=== PATIENT | male | born 1960 | race African-American/Black ===

== ENCOUNTER 2017-02-14 11:06 | Inpatient (IN) ==
--- NOTE | 2017-02-14 11:35 | Emergency Department Note ---
Sebastian Casillas Brooke, am scribing for, and in the presence of, Jose Mccauley MD 11:32 . Parisa Casillas James D, MD, personally performed the services described in this documentation, ascribed by Fanta Cortes in my presence, and it is both accurate and complete 135 . Arrival - Arrival Chief Complaint: Extremity Problem Stated Complaint: legs swollen/out of BP meds ED Nursing Triage Note: Bilat leg swelling onset x 3 days - pt states that he is out of his meds x 2 months - pt does not know the name of his fluid and BP meds that he is out of Mode of Arrival: Ambulatory Limitations: No Limitations Source: Patient, RN Notes Reviewed Time Seen by Provider: 02/14/17 11:26 - History of Present Illness HPI Narrative: Patient is a 56 year old male who presents to the ED with c/o abdominal and bilateral led swelling. Patient says he ran out of his fluid pills two months ago. He says he goes to [facility] to get his medications. Patient has had the fluid drawn from his abdomen but states that it has been about four years. Patient drinks alcohol daily. He says he drinks a pint of bourbon whiskey every day. He has been drinking for years. Patient also complains of having shortness of breath. 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 Allergies/Adverse Reactions: Allergies Allergy/AdvReac Type Severity Reaction Status Date / Time No Known Allergies Allergy Unverified 02/14/17 11:13 Home Medications: Home Medications Medication Instructions Recorded Confirmed Type Propranolol Tab [Inderal Tab] 20 mg PO BID 02/14/17 02/14/17 History Spironolactone 25 mg PO BID 02/14/17 02/14/17 History Review of System - Review of System 12 point system: reviewed and no additional remarkable complaints except as stated - Review of System Constitutional: Absent: fever Respiratory: Present: other (shortness of breath). Absent: respiratory distress Gastrointestinal: Present: other (abdominal swelling) Skin: Absent: rash Neurological: Present: other (bilateral lower extremity edema) Medical,Surgical,& Family Hx - Medical History Cardio: History of: Hypertension - Social History Smoking Status: Never smoker Frequency of Alcohol Use: Frequently Type of Drug Use: None Exam Vital Signs: Vital Signs Temperature 98.5 F 02/14/17 11:50 Pulse Rate 72 02/14/17 13:00 Respiratory Rate 18 02/14/17 13:00 Blood Pressure 114/64 02/14/17 13:00 O2 Sat by Pulse Oximetry 100 02/14/17 13:00 GENERAL: This is a well-nourished well-developed black male, chronically ill- appearing, in no apparent distress. Smells of alcohol VITAL SIGNS: Reviewed HEENT: Head is atraumatic and normocephalic. Pupils are equal round react to light. Extraocular movements are intact. Oropharynx is benign with moist mucous membranes. NECK: Neck is soft and supple without tenderness. There are no masses. There is no lymphadenopathy. LUNGS: Lungs are clear to auscultation. Chest rises symmetrically. There is no chest wall tenderness. CV: Heart is regular rate and rhythm without murmurs rubs or gallops. ABDOMEN: Abdomen is soft, nontender to palpation. There are no abdominal abnormal masses palpated. There is no organomegaly. Bowel sounds are present and active. Abdomen is distended with ascites. SKIN: Skin is warm and dry. No rash. EXTREMITIES: Patient has full range of motion without tenderness. There is 3+ pitting pedal edema. NEUROLOGIC: Awake alert and oriented 4. Cranial nerves II through XII are intact. Motor is 5 over 5 in all extremities bilaterally. Course - Consultations Consultation #1: Discussed with hospitalist. Patient will be admitted to their service. Time: 13:46 Results - Labs CBC & BMP: 02/14/17 11:30 02/14/17 11:30 Lab Results: I have reviewed the patients labs Labs: Laboratory Tests 02/14/17 11:30 INR 1.4 Laboratory Tests 02/14/17 02/14/17 11:30 11:30 Albumin 2.3 L Globulin 5.9 H Serum Alcohol 311 - Diagnostic Findings Procedure: Ultrasound: report reviewed by me (Liver ultrasound: Cholelithiasis, no thickening of the gallbladder wall.) Disposition Clinical Impression: Cirrhosis of liver with ascites, Alcoholism, Anemia Case discussed with: patient Disposition: Still a Patient Condition: Stable New Prescriptions: Rx's Medication Instructions Recorded Furosemide Tab [Lasix Tab] 40 mg PO DAILY #30 tablet 02/14/17 Spironolactone [Aldactone] 25 mg PO BID #60 tablet 02/14/17 Time of Disposition: 13:44
[2017-02-14 11:47] LABS: Basophils % 0.5 % (0.0-0.8); Eosinophils # 0.1 10*3/uL (0.0-0.87); Hematocrit 24.1 VOL% (42.0-52.0); Hemoglobin 8.7 GM/DL (14.0-18.0); Immature Granulocytes % 0.2 %; Immature Granulocytes Absolute 0.01 #; Lymphocytes # 1.6 10*3/uL (1.4-4.0); Lymphocytes % 36.5 % (21.2-54.2); Mean Corpuscular HGB Conc 36.1 GM/DL (32-36); Mean Corpuscular Hemoglobin 30 PG (27-34); Mean Corpuscular Volume 82.3 FL (87-102); Mean Platelet Volume 10.6 FL (9.6-12.0); Monocytes # 0.5 10*3/uL (0.11-0.8); Monocytes % 11.5 % (1.7-12.7); Neutrophils # 2.2 10*3/uL (1.4-7.4); Neutrophils % 49.3 % (38.7-73.9); Platelet Count 102 T/CUMM (130-400); Red Blood Count 2.93 MC/CUMM (3.8-5.5); Red Cell Distribution Width 17.8 % (9.3-17.3); White Blood Count 4.4 T/CUMM (4-12)
--- NOTE | 2017-02-14 11:52 | XRay Report ---
Portable chest Date: 02/14/2017 Clinical history: Edema Comparison: None Technique: Portable AP sitting chest Findings: The heart is minimally enlarged with calcification in the aortic knob. Calcified granulomata/nodes with minimal diffuse parenchymal findings in the lower lung zones. Unremarkable mediastinum. Degenerative changes with old healed right rib fractures. Impression: Old healed granulomatous disease with probable chronic scarring. It is difficult to exclude minimal infiltration or other diffuse interstitial findings especially in the lower lung zones. PROCEDURE INTERPRETED AT [facility] DEPARTMENT OF RADIOLOGY Final Report Signed by: Dr. Ashley Mccloud
[2017-02-14 12:11] LABS: Hypochromasia 1+; Lymphocytes 38 % (20-55); Segmented Neutrophils 53 % (50-85); Total Cells Counted 100
[2017-02-14 12:12] LABS: Macrocytosis Slight; Target Cells Slight
[2017-02-14 12:13] LABS: Platelet Estimate Decreased
[2017-02-14 12:18] LABS: INR 1.4; PT Patient Result 15.3 SECS; Partial Thromboplastin Time 32.8 SECS (0-40)
--- NOTE | 2017-02-14 12:18 | Ultrasound Report ---
US liver Indication: Cirrhosis. Comparison: None. Technique: Using transcutaneous probe, ultrasound imaging of the right upper quadrant was performed. Ultrasound images were captured and stored. Imaged structures include the liver, gallbladder, pancreas, right kidney, aorta, and inferior vena cava. Findings: Liver demonstrates heterogeneous echotexture that is minimally hyperechoic to the right renal cortex. As measured, the right hepatic lobe is 18.7 cm in craniocaudal dimension. The margins of the liver on some images appear nodular. Color flow is present within the interrogated portal and hepatic venous segments. Numerous gallstones are present within the gallbladder. In addition, gallbladder wall thickening is present with gallbladder wall measuring up to 6 mm. Common bile duct is normal in size measuring 4.8 mm. Right kidney measures 11.0 cm in craniocaudal dimension. Pancreas was not included on the study. The aorta and inferior vena cava are not included on the study. Impression: 1. Cholelithiasis is demonstrated without gallbladder wall thickening additionally present. In the correct clinical scenario, this could reflect evidence of acute cholecystitis. 02/14/2017 12:14 PM PROCEDURE INTERPRETED AT [facility] DEPARTMENT OF RADIOLOGY Final Report Signed by: Dr. Felipe Noel
[2017-02-14 12:20] LABS: Albumin 2.3 G/DL (3.4-5.0); Bilirubin,Total 0.8 MG/DL (0.2-1.0); Calcium 8.5 MG/DL (8.5-10.1); Osmolality,Calculated 281.4 MOS/KG (273-304); Potassium 3.7 MMOL/L (3.5-5.1); Total Protein 8.2 G/DL (6.4-8.3)
[2017-02-14] MEDS ORDERED: DOCUSATE SODIUM 100 MG CAPSULE PO PRN (17:24)
--- NOTE | 2017-02-14 17:24 | Hospitalist History & Physical ---
Assessment and Plan - Time spent with patient Time spent with patient: Greater than 30 minutes (1) Cirrhosis of liver with ascites Status: Acute Assessment and plan: Will admit to hospitalist services. Will consult surgery for further evaluation of Cholecystitis,cholelithiasis. Will order pain medication for control. Will repeat a.m. labs. Current Visit: Yes (2) Anemia Status: Acute Assessment and plan: Stable at present. Will repeat labs in a.m. Current Visit: Yes (3) Alcoholism Status: Acute Assessment and plan: Will provide PRN coverage for any potential DTs. Current Visit: Yes History of Present Illness Chief complaint: abd pain History of present illness: Mr. Keen is a 56 year old black male PMHx cirrhosis of liver with ascites, alcoholism, anemia; presented to ED for c/o abdominal pain generalized, more pain to upper right quadrant and bilateral lower leg swelling x 3 days. He reports shortness of breath and abdominal swelling. He reports he is out of his home medications x2 months. He reports that he drinks a pint of vodka or whiskey every day. He denies smoking. Denies illicit drug use. Denies fever, chills, or chest pain. IN ED: Impression: Old healed granulomatous disease with probable chronic scarring. It is difficult to exclude minimal infiltration or other diffuse interstitial findings especially in the lower lung zones. Liver Ultrasound: Cholelithiasis is demonstrated without gallbladder wall thickening additionally present. In the correct clinical scenario, this could reflect evidence of acute cholecystitis. LABS: Hgb 8.7, Hct 24.1, Plt 102; INR 1.4, PT 15.3, PTT 32.8, BUN 18, Creatinine 1.60, Glucose 120, AST 109, ALT 25, ALKALINE PHOS 202, Serum Alcohol 311. After discussion with Dr Mccauley in the ED and with Hospitalist medicine, it was agreed patient would need to be admitted to the hospital for further evaluation. Home medications will be reviewed and reconciliation to follow. Home Medications Medication Instructions Recorded Confirmed Type Propranolol Tab [Inderal Tab] 20 mg PO BID 02/14/17 02/14/17 History Spironolactone 25 mg PO BID 02/14/17 02/14/17 History Allergies Allergy/AdvReac Type Severity Reaction Status Date / Time No Known Allergies Allergy Unverified 02/14/17 11:13 Medical,Surgical,& Family Hx - Medical History Cardio: History of: Hypertension Gastrointestinal: History of: Liver Problems (had fluid drawn off "my belly" last time about 5 years ago) - Family History Family History: Reports;: Family Cancer (Father- lung), Family Heart Disease ( Mother), Family Hypertension (Mother), Family Stroke (Mother) - Social History Smoking Status: Never smoker Frequency of Alcohol Use: Frequently Type of Drug Use: None Lives With:: rents a room from someone Functional capacity: independent ambulation Review of systems: ROS completed and pertinent positives and negatives in the HPI. Exam - Constitutional Vitals: Period Temp Pulse Resp BP Sys/Atwood Pulse Ox Last 24 Hr 97.2 F-98.5 F 64-76 18-20 91-162/41-82 97-100 General appearance: normal weight, no acute distress - Head Head exam: Present: normal inspection - Eye Eye exam: Present: EOMI Pupils: Present: QUINCY - Respiratory Respiratory exam: Present: clear to auscultation bilaterally. Absent: stridor, wheezes - Cardiovascular Cardiovascular exam: Present: regular rate and rhythm - GI/Abdominal GI/Abdominal exam: Present: normal bowel sounds, ascites, distended, tenderness (extreme tenderness at the upper right quad), soft. Absent: guarding, rebound Results - Labs CBC & BMP: 02/14/17 11:30 02/14/17 11:30 Lab Results: I have reviewed the past 24 hour labs - Diagnostic Findings Procedure: Chest x-ray: report reviewed by me (old healed granulomatous disease with probable chronic scarring, it is difficult to exclude minimal infiltration or other diffuse interstitial findings especially in the lower lung zones), Ultrasound: report reviewed by me (LIVER: cholelithiasis is demonstrated without gallbladder wall thickening additionally present; in the correct clinincal scenario,this could reflect evidence of acute cholecystitis)
[2017-02-14] MEDS ORDERED: FUROSEMIDE 40 MG/4 ML VIAL IV ONE (18:49)
[2017-02-14] MEDS ORDERED: POTASSIUM CHLORIDE 20 MEQ TABLET PO ONE (18:50)
--- NOTE | 2017-02-14 19:26 | General Surgery Consult Note ---
Assessment and Plan (1) Gallstone Status: Acute Assessment and plan: The patient's gallbladder was likely secondary to his alcohol use and ascites. No surgical management is recommended no further workup is necessary. I will reexamine the patient once he is sober tomorrow but I do not see any plans for surgical intervention. Current Visit: Yes History of Present Illness Chief complaint: Alcohol intoxication History of present illness: Mr. Keen is a 56 year old male with a history of alcohol abuse admitted with an acute intoxication of alcohol. I was consulted for abdominal findings of gallstones and wall thickening. The patient does not report any abdominal pain on my exam. He appears to have ascites. He is still drunk. Home Medications Medication Instructions Recorded Confirmed Type Propranolol Tab [Inderal Tab] 20 mg PO BID 02/14/17 02/14/17 History Spironolactone 25 mg PO BID 02/14/17 02/14/17 History Allergies Allergy/AdvReac Type Severity Reaction Status Date / Time No Known Allergies Allergy Unverified 02/14/17 11:13 Medical,Surgical,& Family Hx - Medical History Cardio: History of: Hypertension Gastrointestinal: History of: Liver Problems (had fluid drawn off "my belly" last time about 5 years ago) - Family History Family History: Reports;: Family Cancer (Father- lung), Family Heart Disease ( Mother), Family Hypertension (Mother), Family Stroke (Mother) - Social History Smoking Status: Never smoker Frequency of Alcohol Use: Frequently Type of Drug Use: None - Constitutional Constitutional: Present: as per HPI - EENT Nose, mouth and throat: Present: as per HPI - Cardiovascular Cardiovascular: Present: as per HPI - Respiratory Respiratory: Present: as per HPI - Gastrointestinal Gastrointestinal: Present: as per HPI - Genitourinary Genitourinary: Present: as per HPI - Musculoskeletal Musculoskeletal: Present: as per HPI - Neurological Neurological: Present: as per HPI - Endocrine Endocrine: Present: as per HPI Hematologic/Lymphatic: Present: as per HPI Exam - Constitutional Vitals: Period Temp Pulse Resp BP Sys/Atwood Pulse Ox Last 24 Hr 97.2 F-98.5 F 64-76 18-20 91-162/41-82 97-100 General appearance: no acute distress, over weight - Head Head exam: Present: normal inspection, normocephalic - Eye Eye exam: Present: EOMI. Absent: scleral icterus Pupils: Present: QUINCY - ENT ENT exam: Present: normal exam Mouth exam: Present: normal external inspection, normal voice - Neck Neck exam: Present: normal inspection, trachea midline - Respiratory Respiratory exam: Present: clear to auscultation bilaterally. Absent: accessory muscle use, chest wall tenderness - Cardiovascular Cardiovascular exam: Present: RRR. Absent: systolic murmur, tachycardia - GI/Abdominal GI/Abdominal exam: Present: normal bowel sounds, ascites, soft. Absent: Hairston' s sign, tenderness, rebound - Extremities Exam Extremities exam: Present: normal inspection, normal capillary refill - Back Exam Back exam: Present: normal inspection - Neurological Exam Neurological exam: Present: alert, oriented X3 Speech: Present: normal - Skin Skin exam: Present: normal color, warm Quality Measures - VTE Contraindication to Pharmacological VTE Prophylaxis: Thrombocytopenia Results - Labs CBC & BMP: 02/14/17 11:30 02/14/17 11:30 - Diagnostic Findings Procedure: Ultrasound: report reviewed by me
[2017-02-14 20:01] LABS: Basophils % 0.5 % (0.0-0.8); Eosinophils # 0.1 10*3/uL (0.0-0.87); Eosinophils % 1.5 % (0.00-10.9); Hematocrit 25.4 VOL% (42.0-52.0); Hemoglobin 8.9 GM/DL (14.0-18.0); Immature Granulocytes % 0.4 %; Immature Granulocytes Absolute 0.02 #; Lymphocytes # 1.5 10*3/uL (1.4-4.0); Lymphocytes % 27.8 % (21.2-54.2); Mean Corpuscular Hemoglobin 29 PG (27-34); Mean Corpuscular Volume 83.3 FL (87-102); Mean Platelet Volume 10.5 FL (9.6-12.0); Monocytes # 0.7 10*3/uL (0.11-0.8); Monocytes % 12.9 % (1.7-12.7); Neutrophils # 3.1 10*3/uL (1.4-7.4); Neutrophils % 56.9 % (38.7-73.9); Platelet Count 95 T/CUMM (130-400); Red Blood Count 3.05 MC/CUMM (3.8-5.5); Red Cell Distribution Width 18.1 % (9.3-17.3); White Blood Count 5.5 T/CUMM (4-12)
[2017-02-14 20:28] LABS: Folate 10.8 NG/ML (5.4-24.0); Vitamin B12 471 PG/ML (211-911)
[2017-02-14] MEDS: SPIRONOLACTONE 25 MG TABLET PO SCH (21:25)
[2017-02-14] MEDS: PROPRANOLOL 20 MG TABLET PO SCH (21:25)
[2017-02-14 23:53] LABS: Sedimentation Rate-Westergren 120 MM/HR (0-20)
[2017-02-15] MEDS: MORPHINE 2 MG/1 ML SYRINGE IV PRN (03:02)
[2017-02-15 05:26] LABS: Basophils % 0.8 % (0.0-0.8); Eosinophils # 0.1 10*3/uL (0.0-0.87); Eosinophils % 1.6 % (0.00-10.9); Hematocrit 23.4 VOL% (42.0-52.0); Hemoglobin 8.4 GM/DL (14.0-18.0); Immature Granulocytes % 0.4 %; Immature Granulocytes Absolute 0.02 #; Lymphocytes # 1.4 10*3/uL (1.4-4.0); Lymphocytes % 27.9 % (21.2-54.2); Mean Corpuscular HGB Conc 35.9 GM/DL (32-36); Mean Corpuscular Hemoglobin 29 PG (27-34); Mean Corpuscular Volume 81.8 FL (87-102); Mean Platelet Volume 10.5 FL (9.6-12.0); Monocytes # 0.8 10*3/uL (0.11-0.8); Monocytes % 15.5 % (1.7-12.7); Neutrophils # 2.7 10*3/uL (1.4-7.4); Neutrophils % 53.8 % (38.7-73.9); Red Blood Count 2.86 MC/CUMM (3.8-5.5); Red Cell Distribution Width 17.5 % (9.3-17.3); White Blood Count 5.1 T/CUMM (4-12)
[2017-02-15 05:50] LABS: Platelet Count 95 T/CUMM (130-400)
[2017-02-15 05:58] LABS: Calcium 8.4 MG/DL (8.5-10.1); Magnesium 1.8 MG/DL (1.8-2.4); Osmolality,Calculated 279.4 MOS/KG (273-304); Potassium 4.2 MMOL/L (3.5-5.1); Risk Ratio 4.06; VLDL CHOLESTEROL 11.4 MG/DL
[2017-02-15 07:12] LABS: Hypochromasia 2+; Microcytosis Slight
[2017-02-15] MEDS ORDERED: THIAMINE INJ 100 MG in SODIUM CHLORIDE 0.9% 100 ML IV SCH (09:00)
[2017-02-15] MEDS ORDERED: THIAMINE 200 MG/2 ML VIAL IV SCH (09:00)
[2017-02-15] MEDS: PROPRANOLOL 20 MG TABLET PO SCH ×2 (09:43→20:37)
[2017-02-15] MEDS: MULTIVITAMIN (BEROCCA) TABLET PO SCH (09:43)
[2017-02-15] MEDS: SPIRONOLACTONE 25 MG TABLET PO SCH ×2 (09:43→20:37)
[2017-02-15] MEDS: PANTOPRAZOLE 40 MG TABLET PO SCH (09:43)
[2017-02-15 10:22] LABS: Hemoglobin A1 (Alkaline) 62.3 % (96.5-98.5); Hemoglobin A2 (Alkaline) 2.1 % (1.5-3.5); Hemoglobin S (Alkaline) 35.6 %
--- NOTE | 2017-02-15 11:18 | Hospitalist Progress Note ---
Assessment and Plan (1) Cirrhosis of liver with ascites Status: Chronic Assessment and plan: This apparently has been long-standing with a remote paracentesis. 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 His ultrasound does not mention any ascites however gallstones are described. He has increased globulin fraction raising the possibility of coexistent hepatitis C etc. Current Visit: Yes (2) Abdominal pain Status: Acute Assessment and plan: Poorly described with possible element of alcoholic gastritis Current Visit: Yes Hospitalist: Subjective Interval history: 56-year-old male history of cirrhosis with active alcohol use who has been off medications for an undetermined length of time. It is somewhat difficult to pin him down to a specific complaint. He has some right upper quadrant pain but also complains of swelling in the lower extremities. He has been seen by general surgeon in response to an ultrasound of his abdomen demonstrating gallstones. His level of intoxication limited the initial surgical evaluation and repeat exam is pending. Today he describes some burning epigastric discomfort without vomiting or nausea. His vital signs overnight were unremarkable and follow-up laboratory work is stable. His admitting laboratory work demonstrated a AST of 109 with a blood alcohol level of 311. His globulin fraction is 5.9 substantially elevated with a normal calcium level. His protime was 15.3 seconds. He continues to show an anemia with thrombocytopenia both values stable. His His hemoglobin electrophoresis is consistent with sickle trait. Exam - Constitutional Vitals: Period Temp Pulse Resp BP Sys/Atwood Pulse Ox Last 24 Hr 97.2 F-99.2 F 64-99 16-24 91-162/41-82 92-100 General appearance: over weight - Respiratory Respiratory exam: Present: clear to auscultation bilaterally. Absent: rales, rhonchi - Cardiovascular Cardiovascular exam: Present: regular rate and rhythm, systolic murmur (Low- frequency 1/6 mid precordial murmur) - GI/Abdominal GI/Abdominal exam: Present: normal bowel sounds, ascites, tenderness (Possibly right upper quadrant). Absent: organomegaly (No splenomegaly is detected) - Extremities Exam Extremities exam: Absent: edema - Neurological Exam Neurological exam: Present: alert, oriented X3 Results - Labs CBC & BMP: 02/15/17 04:24 02/15/17 04:24 - Diagnostic Findings Procedure: Chest x-ray: image reviewed by me (Normal heart size clear lung field ) Quality Measures - VTE Contraindication to Pharmacological VTE Prophylaxis: Thrombocytopenia
[2017-02-15 12:27] LABS: HIV Antigen/Antibody Result Nonreactive (Nonreactive)
[2017-02-15 12:29] LABS: Hepatitis A Ab IgM Quant 0.14 Index; Hepatitis A Ab IgM Result Negative (Negative); Hepatitis B Core IgM Quant < 0.05 Index; Hepatitis B Core IgM Result Negative (Negative); Hepatitis B Surface Ag Result Negative (Negative); Hepatitis C Virus Ab Quant 0.35 Index; Hepatitis C Virus Ab Result Negative (Negative)
--- NOTE | 2017-02-15 13:51 | General Surgery Progress Note ---
Assessment and Plan (1) Gallstone Status: Acute Assessment and plan: This patient has gallstones but I think his gallbladder wall thickening is related to his ascites and his acute hepatitis from alcoholic liver disease. I would not recommend any intervention on his gallbladder and if he did need any intervention it would need to be nonsurgical because of his risk with his cirrhosis and ascites. I will check back on Saturday and he will have as needed coverage over the weekend. Current Visit: Yes Subjective Patient reports: Present: no new complaints, pain is less, afebrile Exam - Constitutional Vitals: Period Temp Pulse Resp BP Sys/Atwood Pulse Ox Last 24 Hr 97.2 F-99.2 F 64-99 16-24 116-162/67-82 92-100 General appearance: no acute distress, over weight - Head Head exam: Present: normal inspection, normocephalic - Eye Eye exam: Present: EOMI. Absent: scleral icterus Pupils: Present: QUINCY - ENT ENT exam: Present: normal exam Mouth exam: Present: normal external inspection, normal voice - Neck Neck exam: Present: normal inspection, trachea midline - Respiratory Respiratory exam: Present: clear to auscultation bilaterally. Absent: accessory muscle use, chest wall tenderness - Cardiovascular Cardiovascular exam: Present: RRR. Absent: systolic murmur, tachycardia - GI/Abdominal GI/Abdominal exam: Present: normal bowel sounds, ascites, tenderness (non- specific abdominal tenderness mostly in the lower quadrants), soft - Extremities Exam Extremities exam: Present: normal capillary refill, edema - Back Exam Back exam: Present: normal inspection - Neurological Exam Neurological exam: Present: alert, oriented X3 Speech: Present: normal - Skin Skin exam: Present: normal color, warm Results - Labs CBC & BMP: 02/15/17 04:24 02/15/17 04:24 Quality Measures - VTE Contraindication to Pharmacological VTE Prophylaxis: Thrombocytopenia
[2017-02-16] MEDS: CLORAZEPATE 7.5 MG TABLET PO PRN ×2 (03:47→21:50)
[2017-02-16] MEDS: SPIRONOLACTONE 25 MG TABLET PO SCH ×2 (08:51→20:36)
[2017-02-16] MEDS: PROPRANOLOL 20 MG TABLET PO SCH ×2 (08:51→20:35)
[2017-02-16] MEDS: PANTOPRAZOLE 40 MG TABLET PO SCH (08:51)
[2017-02-16] MEDS: MULTIVITAMIN (BEROCCA) TABLET PO SCH (08:51)
--- NOTE | 2017-02-16 09:40 | Hospitalist Progress Note ---
Assessment and Plan (1) Cirrhosis of liver with ascites Status: Chronic Assessment and plan: This apparently has been long-standing with a remote paracentesis. 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 His ultrasound does not mention any ascites however gallstones are described. He has increased globulin fraction raising the possibility of coexistent hepatitis C etc. however his hepatitis panel and HIV are all negative. His original medicines have been resumed at admission. We will add Lasix and consider the possibility of paracentesis. Current Visit: Yes (2) Abdominal pain Status: Acute Assessment and plan: Poorly described with possible element of alcoholic gastritis. Gallstones are present on ultrasound surgical evaluation has been completed and these are not believed to be contributing to his description of pain. Current Visit: Yes Hospitalist: Subjective Interval history: 56-year-old male with documented history of cirrhosis with previous paracenteses several years ago initiated on beta blockade and spironolactone but discontinued by the patient. In addition he has continued to drink. He presented with abdominal pain largely focused in the right upper quadrant but generally diffuse with gallbladder ultrasound positive for stones. He has noticed some increased swelling of his abdomen as well as peripheral edema. He was evaluated by a general surgery after clearing alcohol intoxication. It is felt that his gallbladder is not likely to be the source of his pain. Clinically he appears to have reaccumulated ascites and this is likely contributing to most of the discomfort. Unfortunately the ultrasound does not quantitate any ascites. On admission he was reinitiated on propranolol and spironolactone. Overnight vital signs are stable he is afebrile. He continues to have nonfocal discomfort. We will augment his spironolactone dose and add oral Lasix. I have discussed with him the potential need for a diagnostic/ therapeutic paracentesis if response is inadequate. Exam - Constitutional Vitals: Period Temp Pulse Resp BP Sys/Atwood Pulse Ox Last 24 Hr 97.3 F-98.2 F 54-66 18-20 117-168/65-82 98-99 General appearance: over weight - Respiratory Respiratory exam: Present: clear to auscultation bilaterally. Absent: rales, rhonchi, wheezes - Cardiovascular Cardiovascular exam: Present: regular rate and rhythm - GI/Abdominal GI/Abdominal exam: Present: normal bowel sounds, ascites, tenderness (Minimal diffuse) - Extremities Exam Extremities exam: Absent: edema - Neurological Exam Neurological exam: Present: alert, oriented X3 - Psychiatric Psychiatric exam: Present: normal affect Results - Labs CBC & BMP: 02/15/17 04:24 02/15/17 04:24 Quality Measures - VTE Contraindication to Pharmacological VTE Prophylaxis: Thrombocytopenia
--- NOTE | 2017-02-16 10:34 | Event Note ---
02/16/2017. Patient with cirrhosis and ascites but also was found to have some gallstones. Patient is afebrile been tolerating full liquids okay without problems. Will advance him to some solid food. Patient is complaining of little distention discomfort and discomfort in the lower extremities. He pries a certain degree of anasarca and I do not know what medicine was to do to try to improve the ascites at this time. Agree with Dr. Byrne surgery to be risky on the gallbladder and it probably would not benefit him and change his general symptoms at all.
[2017-02-16] MEDS: FUROSEMIDE 20 MG TABLET PO SCH (13:34)
[2017-02-16] MEDS: THIAMINE 200 MG/2 ML VIAL IV SCH (15:14)
[2017-02-17] MEDS: ONDANSETRON 4 MG/2 ML VIAL IV PRN (00:03)
[2017-02-17] MEDS: MORPHINE 2 MG/1 ML SYRINGE IV PRN (00:05)
[2017-02-17 02:14] LABS: Basophils % 0.5 % (0.0-0.8); Eosinophils # 0.2 10*3/uL (0.0-0.87); Eosinophils % 2.8 % (0.00-10.9); Hematocrit 26.4 VOL% (42.0-52.0); Hemoglobin 9.2 GM/DL (14.0-18.0); Immature Granulocytes % 0.2 %; Immature Granulocytes Absolute 0.01 #; Lymphocytes # 1.7 10*3/uL (1.4-4.0); Lymphocytes % 28.7 % (21.2-54.2); Mean Corpuscular HGB Conc 34.8 GM/DL (32-36); Mean Corpuscular Hemoglobin 29 PG (27-34); Mean Corpuscular Volume 82.5 FL (87-102); Mean Platelet Volume 11.6 FL (9.6-12.0); Monocytes % 17.2 % (1.7-12.7); Neutrophils # 2.9 10*3/uL (1.4-7.4); Neutrophils % 50.6 % (38.7-73.9); Platelet Count 109 T/CUMM (130-400); Red Cell Distribution Width 17.6 % (9.3-17.3); White Blood Count 5.8 T/CUMM (4-12)
[2017-02-17 03:00] LABS: Calcium 8.7 MG/DL (8.5-10.1); Magnesium 1.6 MG/DL (1.8-2.4); Osmolality,Calculated 269.1 MOS/KG (273-304)
[2017-02-17 03:53] LABS: Eosinophils 6 % (0-10); Lymphocytes 35 % (20-55); Myelocytes 3 %; Segmented Neutrophils 50 % (50-85)
[2017-02-17 03:54] LABS: Target Cells 2+
[2017-02-17 03:55] LABS: Anisocytosis 2+; Macrocytosis 2+; Platelet Estimate Decreased
[2017-02-17 03:56] LABS: Hypochromasia 1+; Total Cells Counted 100
[2017-02-17] MEDS: SPIRONOLACTONE 25 MG TABLET PO SCH ×2 (08:47→21:15)
[2017-02-17] MEDS: MULTIVITAMIN (BEROCCA) TABLET PO SCH (08:47)
[2017-02-17] MEDS: PROPRANOLOL 20 MG TABLET PO SCH ×2 (08:47→21:15)
[2017-02-17] MEDS: PANTOPRAZOLE 40 MG TABLET PO SCH (08:47)
[2017-02-17] MEDS: FUROSEMIDE 20 MG TABLET PO SCH (08:47)
[2017-02-17] MEDS: THIAMINE 200 MG/2 ML VIAL IV SCH (08:49)
--- NOTE | 2017-02-17 11:07 | Event Note ---
02/17/2017. Patient remains afebrile vital signs are stable at this time. Continues with abdominal distention secondary to ascites. Tolerating his diet okay at this point. Nothing more to do but just observation.
[2017-02-17] MEDS ORDERED: MAGNESIUM SULF RIDER 2 GM in PREMIX 1 EACH IV ONE (13:40)
--- NOTE | 2017-02-17 13:40 | Hospitalist Progress Note ---
Assessment and Plan (1) Cirrhosis of liver with ascites Status: Chronic Assessment and plan: The patient is admitted hospital with abdominal distention and some abdominal pain. The patient's right upper quadrant pain has improved but generalized tenderness continues. The patient's ascites is improving with appropriate diuresis and renal function is stable. Magnesium is low and will be replaced we will recheck laboratories tomorrow and hold the patient n.p.o. for contemplation of possible paracentesis. Current Visit: Yes Hospitalist: Subjective Interval history: 56-year-old male with documented history of cirrhosis with previous paracenteses several years ago initiated on beta blockade and spironolactone but discontinued by the patient. In addition he has continued to drink. He presented with abdominal pain largely focused in the right upper quadrant but generally diffuse with gallbladder ultrasound positive for stones. He has noticed some increased swelling of his abdomen as well as peripheral edema. He was evaluated by a general surgery after clearing alcohol intoxication. It is felt that his gallbladder is not likely to be the source of his pain. Clinically he appears to have reaccumulated ascites and this is likely contributing to most of the discomfort. Unfortunately the ultrasound does not quantitate any ascites. On admission he was reinitiated on propranolol and spironolactone. Overnight vital signs are stable he is afebrile. He continues to have nonfocal discomfort. We will continue oral spironolactone and Lasix Exam - Constitutional Vitals: Period Temp Pulse Resp BP Sys/Atwood Pulse Ox Last 24 Hr 97.0 F-98.7 F 50-59 18-20 107-138/56-98 96-97 General appearance: mild distress - Respiratory Respiratory exam: Present: clear to auscultation bilaterally - Cardiovascular Cardiovascular exam: Present: regular rate and rhythm - GI/Abdominal GI/Abdominal exam: Present: ascites, distended, hypoactive bowel sounds Results - Labs CBC & BMP: 02/17/17 01:28 02/17/17 01:28 Lab Results: I have reviewed the past 24 hour labs Quality Measures - VTE Contraindication to Pharmacological VTE Prophylaxis: Thrombocytopenia
[2017-02-17] MEDS: CLORAZEPATE 7.5 MG TABLET PO PRN (21:15)
[2017-02-18 04:49] LABS: Basophils % 0.5 % (0.0-0.8); Eosinophils # 0.2 10*3/uL (0.0-0.87); Eosinophils % 2.9 % (0.00-10.9); Hematocrit 25.9 VOL% (42.0-52.0); Hemoglobin 9.1 GM/DL (14.0-18.0); Immature Granulocytes % 0.4 %; Immature Granulocytes Absolute 0.02 #; Lymphocytes # 1.8 10*3/uL (1.4-4.0); Lymphocytes % 33.2 % (21.2-54.2); Mean Corpuscular HGB Conc 35.1 GM/DL (32-36); Mean Corpuscular Hemoglobin 29 PG (27-34); Mean Corpuscular Volume 82.2 FL (87-102); Monocytes % 17.4 % (1.7-12.7); Neutrophils # 2.5 10*3/uL (1.4-7.4); Neutrophils % 45.6 % (38.7-73.9); Platelet Count 125 T/CUMM (130-400); Red Blood Count 3.15 MC/CUMM (3.8-5.5); Red Cell Distribution Width 17.5 % (9.3-17.3); White Blood Count 5.5 T/CUMM (4-12)
[2017-02-18 05:09] LABS: INR 1.5; PT Patient Result 15.8 SECS
[2017-02-18 05:25] LABS: Calcium 8.7 MG/DL (8.5-10.1); Magnesium 2.3 MG/DL (1.8-2.4); Osmolality,Calculated 269.2 MOS/KG (273-304); Potassium 4.2 MMOL/L (3.5-5.1)
[2017-02-18 05:30] LABS: Eosinophils 1 % (0-10); Hypochromasia 2+; Lymphocytes 35 % (20-55); Platelet Estimate Decreased; Segmented Neutrophils 54 % (50-85); Target Cells 1+; Total Cells Counted 100
[2017-02-18] MEDS: MULTIVITAMIN (BEROCCA) TABLET PO SCH (08:27)
[2017-02-18] MEDS: SPIRONOLACTONE 25 MG TABLET PO SCH ×2 (08:27→20:48)
[2017-02-18] MEDS: FUROSEMIDE 20 MG TABLET PO SCH (08:27)
[2017-02-18] MEDS: PROPRANOLOL 20 MG TABLET PO SCH (08:27)
[2017-02-18] MEDS: PANTOPRAZOLE 40 MG TABLET PO SCH (08:27)
[2017-02-18] MEDS: THIAMINE 200 MG/2 ML VIAL IV SCH (08:37)
[2017-02-18] MEDS: ALBUTEROL/IPRATROPIUM 3 ML NEB RESP TX SCH ×3 (11:12→19:22)
[2017-02-18] MEDS ORDERED: PHYTONADIONE 5 MG TABLET PO ONE (11:45)
--- NOTE | 2017-02-18 11:49 | Discharge Summary ---
Discharge Plan - Discharge Data Disposition: Disch To Home/Self Care Condition at Discharge: Stable Discharge Diet: heart healthy Activity: resume usual activities as tolerated Hygiene: no restrictions Weight Bearing at Discharge: full weight bearing Contact your physician if you experience:: fever over 101 - Discharge Medications New Folic Acid Tab 1 mg PO DAILY #30 tablet Furosemide Tab [Lasix Tab] 20 mg PO DAILY #30 tablet Albuterol Sulfate [Proair HFA] 2 puff INH Q6H PRN #1 inhaler PRN Reason: Shortness Of Breath/Wheezing Thiamine Tab [Vitamin B1 Tab] 100 mg PO DAILY #30 tablet Continue Spironolactone 25 mg PO BID #60 tablet Changed Propranolol Tab [Inderal Tab] 10 mg PO BID #60 tablet - Follow Up or Referral Follow Up: Clovis Byrne MD [Physician] - 1 Month [facility] [Provider Group] - 2 Weeks - Forms/Instructions Additional Discharge Instructions: discharge home after paracentesis Exam - Constitutional Vitals: Period Temp Pulse Resp BP Sys/Atwood Pulse Ox Last 24 Hr 97.9 F-98.8 F 47-60 16-20 100-141/52-73 95-100 General appearance: normal weight, no acute distress - Respiratory Respiratory exam: Present: clear to auscultation bilaterally. Absent: rhonchi, wheezes - Cardiovascular Cardiovascular exam: Present: regular rate and rhythm. Absent: systolic murmur - GI/Abdominal GI/Abdominal exam: Present: normal bowel sounds, soft. Absent: tenderness - Extremities Exam Extremities exam: Present: normal inspection, normal capillary refill - Neurological Exam Neurological exam: Present: alert, oriented X3 - Psychiatric Psychiatric exam: Present: normal affect, normal mood Discharge Results Procedures and tests throughout hospitalization: Pending Orders 02/14/17 18:48 Occult Blood, Stool Routine Labs on day of discharge: Labs from last 24 hours 02/18/17 02/18/17 02/18/17 04:18 04:18 04:18 WBC 5.5 RBC 3.15 L Hgb 9.1 L Hct 25.9 L MCV 82.2 L MCH 29 MCHC 35.1 RDW 17.5 H Plt Count 125 L MPV 12.0 Neut % (Auto) 45.6 Lymph % (Auto) 33.2 Prentiss % (Auto) 17.4 H Eos % (Auto) 2.9 Baso % (Auto) 0.5 Neut # (Auto) 2.5 Lymph # (Auto) 1.8 Prentiss # (Auto) 1.0 H Eos # (Auto) 0.2 Baso # (Auto) 0.0 Total Counted 100 Immature Gran % 0.4 Nucleated RBC % 0.0 Immature Gran # 0.02 Segmented Neutrophils 54 Lymphocytes 35 Monocytes 8 Eosinophils 1 Basophils 2.0 H Nucleated RBCs # 0.00 Platelet Estimate Decreased Immature Plt Fraction 0.0 Hypochromasia 2+ Target Cells 1+ INR 1.5 PT Patient/Control Mix 15.8 Sodium 134 L Potassium 4.2 Chloride 103 Carbon Dioxide 22 Anion Gap 13.2 BUN 17 Creatinine 1.40 H GFR Calculation 75 BUN/Creatinine Ratio 12.00 Glucose 103 Calculated Osmolality 269.2 L Calcium 8.7 Magnesium 2.3 Ammonia 159 H DS: Provider Date of admission: 02/14/17 13:56 Primary care physician: . No PCP Attending physician on admission: Hieu Luna MD Consults: 02/14/17 17:24 Consult to Physician [CONS] Routine Comment: abd pain/right upper quad/cholelithiasis/?cholcyst Consulting Provider: Clovis Byrne When should Consulting Provider be notified: Now Person Notified: Dr. Byrne Date Notified: 02/14/17 Time Notified: 19:10 02/14/17 17:27 Consult to Case Mgmt/Social Srvs [CONS] Routine Reason for Case Mgmt/Social Srvs: Discharge Planning Discharging clinician: Katharina Marshall MD
--- NOTE | 2017-02-18 11:56 | Hospitalist Progress Note ---
Assessment and Plan (1) Abdominal pain Status: Acute Assessment and plan: Ultrasound liver showed gallstones with possible cholecystitis. Dr. Byrne from surgery is seen him and feels that his pain is due to the gallstones created by the x-ray ascites. Patient is not a candidate to have his gallbladder removed due to the cirrhosis. Dr. Byrne feels he does not have acute cholecystitis. Invanz for sbp prop Current Visit: Yes (2) Alcoholism Status: Acute Assessment and plan: cont tranxene for now, outpatient abigail Current Visit: Yes (3) Anemia Status: Acute Assessment and plan: stable Current Visit: Yes (4) Gallstone Status: Acute Assessment and plan: not surgical candidate per Dr Byrne Current Visit: Yes (5) Cirrhosis of liver with ascites Status: Chronic Assessment and plan: propranolol bid decreased to 10 mg due to bradycardia, ammonia level too high, start lactulose, paracentesis today, inr 1.5 will give vitamin K one dose Current Visit: Yes (6) Altered mental status Status: Acute Assessment and plan: due to elevated ammonia level, hold discharge, lactulose bid Current Visit: Yes Hospitalist: Subjective Interval history: Nursing reports patient was to get his paracentesis today but it was needed and ordered. I have ordered it and we will see if they are able to do it today. Patient cannot be discharged today due to elevated pneumonia level of 159. We must get that down. Patient is confused today and reports some shortness of breath. 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 His INR today is 1.5. Exam - Constitutional Vitals: Period Temp Pulse Resp BP Sys/Atwood Pulse Ox Last 24 Hr 97.9 F-98.8 F 47-60 16-20 100-141/52-73 95-100 Exam: Heart Rate-[salome ] Lungs-[tight and diminished ] GI-[+bs distended with ascites] Ext-[trace edema] Neuro [Motor 5/5], [alert and oriented times 2] psych [blunt mood and affect] General [no acute distress] Results - Labs CBC & BMP: 02/18/17 04:18 02/18/17 04:18 Lab Results: I have reviewed the past 24 hour labs Labs: ammonia level of 159 - Diagnostic Findings Procedure: Ultrasound: report reviewed by me (shows extensive gallstones ) Quality Measures - VTE Contraindication to Pharmacological VTE Prophylaxis: Thrombocytopenia Specialty Discharge - Follow Up or Referrals Follow up with: [facility] [Provider Group] - 2 Weeks Clovis Byrne MD [Physician] - 1 Month
[2017-02-18] MEDS: LACTULOSE 20 GM/30 ML UDCUP PO SCH ×2 (14:34→20:48)
[2017-02-18] MEDS: ERTAPENEM 1,000 MG in SODIUM CHLORIDE 0.9% 100 ML IV SCH (14:34)
--- NOTE | 2017-02-18 16:07 | Ultrasound Report ---
US abdomen limited Clinical Information: Protuberant abdomen, concern for possible ascites, requested for therapeutic and diagnostic paracentesis Comparison: Ultrasound liver dated 04/14/2017 (no ascites on that study) Findings: 4 quadrant evaluation demonstrates no ascites available for drainage. Additionally, midline lower abdomen demonstrates essentially normal appearance of the bladder with no significant free fluid in the dependent pelvis. No other acute sonographic abnormality was incidentally imaged. Impression: No significant ascites within the abdomen. PROCEDURE INTERPRETED AT [facility] DEPARTMENT OF RADIOLOGY Final Report Signed by: Portillo John
[2017-02-18] MEDS: PROPRANOLOL 10 MG TABLET PO SCH (20:48)
[2017-02-18] MEDS: MORPHINE 2 MG/1 ML SYRINGE IV PRN (21:32)
[2017-02-18] MEDS: CLORAZEPATE 7.5 MG TABLET PO PRN (21:33)
[2017-02-19] MEDS: ALBUTEROL/IPRATROPIUM 3 ML NEB RESP TX SCH ×7 (00:02→23:00)
--- NOTE | 2017-02-19 08:03 | General Surgery Progress Note ---
Assessment and Plan (1) Gallstone Status: Acute Assessment and plan: HIDA scan ordered for today. Patient will need percutaneous drainage due to his risks related to alcohol abuse and probable cirrhosis with recent hepatic encephalopathy and alcoholic hepatitis. If the cystic duct is patent we could do a trial of outpatient antibiotics. Current Visit: Yes Subjective Patient reports: Present: no new complaints, feels better, still having pain, tolerating a regular diet, afebrile. Absent: nausea, vomiting Narrative: The patient developed more focal tenderness over his right upper quadrant yesterday and I was asked to reconsult on him. He is not complaining of any pain initially but describes some soreness in the lower abdomen. Exam - Constitutional Vitals: Period Temp Pulse Resp BP Sys/Atwood Pulse Ox Last 24 Hr 98.0 F-98.9 F 47-74 16-20 95-121/52-70 95-100 General appearance: no acute distress, over weight - Head Head exam: Present: normal inspection, normocephalic - Eye Eye exam: Present: EOMI. Absent: scleral icterus Pupils: Present: QUINCY - ENT ENT exam: Present: normal exam Mouth exam: Present: normal external inspection, normal voice - Neck Neck exam: Present: normal inspection, trachea midline - Respiratory Respiratory exam: Present: clear to auscultation bilaterally. Absent: accessory muscle use, chest wall tenderness - Cardiovascular Cardiovascular exam: Present: RRR. Absent: systolic murmur, tachycardia - GI/Abdominal GI/Abdominal exam: Present: normal bowel sounds, tenderness (The patient has some mild tenderness in the right upper quadrant), soft. Absent: Hairston's sign , rebound - Extremities Exam Extremities exam: Present: normal inspection, normal capillary refill - Back Exam Back exam: Present: normal inspection - Neurological Exam Neurological exam: Present: alert, oriented X3 Speech: Present: normal - Skin Skin exam: Present: normal color, warm Results - Labs CBC & BMP: 02/18/17 04:18 02/18/17 04:18 Quality Measures - VTE Contraindication to Pharmacological VTE Prophylaxis: Thrombocytopenia Specialty Discharge - Follow Up or Referrals Follow up with: [facility] [Provider Group] - 2 Weeks Clovis Byrne MD [Physician] - 1 Month
[2017-02-19] MEDS: PROPRANOLOL 10 MG TABLET PO SCH ×2 (10:46→20:16)
[2017-02-19] MEDS: MULTIVITAMIN (BEROCCA) TABLET PO SCH (10:46)
[2017-02-19] MEDS: PANTOPRAZOLE 40 MG TABLET PO SCH (10:46)
[2017-02-19] MEDS: SPIRONOLACTONE 25 MG TABLET PO SCH (10:46)
[2017-02-19] MEDS: LACTULOSE 20 GM/30 ML UDCUP PO SCH ×3 (10:47→20:16)
[2017-02-19] MEDS: FUROSEMIDE 20 MG TABLET PO SCH (10:47)
[2017-02-19] MEDS: THIAMINE 200 MG/2 ML VIAL IV SCH (10:49)
--- NOTE | 2017-02-19 12:36 | Nuclear Medicine Report ---
Exam: Biliary Scan Date: 02/19/2017 Comparison: Ultrasound 02/14/2017 Reason: Right upper quadrant pain, evaluate for cystic duct occlusion Technique: The patient was administered 5 mCi of technetium 99m Choletec IV. Images of the right upper quadrant were then acquired over 90 minutes. Findings: Uniform activity in the liver with no activity in the gallbladder. No bile duct obstruction. Ejection fraction not performed since gallbladder not identified. Impression: Nonfilling of the gallbladder which can be seen with acute cholecystitis or other etiologies of cystic duct obstruction as discussed with the patient's nurseJazmyne at 12:30 PM on 02/19/2017. PROCEDURE INTERPRETED AT [facility] DEPARTMENT OF RADIOLOGY Final Report Signed by: Dr. Ashley Mccloud
[2017-02-19] MEDS: ERTAPENEM 1,000 MG in SODIUM CHLORIDE 0.9% 100 ML IV SCH (13:40)
--- NOTE | 2017-02-19 14:06 | Hospitalist Progress Note ---
Assessment and Plan (1) Abdominal pain Status: Acute Assessment and plan: HIDA scan confirms acute cholecystitis continue Invanz. Interventional radiology will place a percutaneous drain in a.m. Current Visit: Yes (2) Alcoholism Status: Acute Assessment and plan: cont tranxene for now, outpatient abigail Current Visit: Yes (3) Anemia Status: Acute Assessment and plan: stable Current Visit: Yes (4) Gallstone Status: Acute Assessment and plan: not surgical candidate per Dr Byrne will do percutaneous drain Current Visit: Yes (5) Cirrhosis of liver with ascites Status: Chronic Assessment and plan: cont propranolol 10 mg due to bradycardia, ammonia level still high but improving, cont lactulose, no evidence of ascites, stop lasix and spironolactone causing dehydration. Current Visit: Yes (6) Altered mental status Status: Acute Assessment and plan: due to elevated ammonia level, cont lactulose tid, ammonia improving Current Visit: Yes Hospitalist: Subjective Interval history: Discussed case with both Dr. John from interventional radiology and Dr. Byrne from surgery. Patient seems more alert today. His ammonia levels down to 136. Exam - Constitutional Vitals: Period Temp Pulse Resp BP Sys/Atwood Pulse Ox Last 24 Hr 97.6 F-98.9 F 52-74 16-20 95-121/53-70 95-100 Exam: Heart Rate-[salome ] Lungs-[clear] GI-[+bs pain in the right upper quadrant] Ext-[no edema] Neuro [Motor 5/5], [alert and oriented times 3] psych [blunt mood and flat affect] General [no acute distress] Results - Labs CBC & BMP: 02/18/17 04:18 02/18/17 04:18 Lab Results: I have reviewed the past 24 hour labs - Diagnostic Findings Procedure: X-ray: report reviewed by me (HIDA scan shows acute cholecystitis) Quality Measures - VTE Contraindication to Pharmacological VTE Prophylaxis: Thrombocytopenia Specialty Discharge - Follow Up or Referrals Follow up with: [facility] [Provider Group] - 2 Weeks Clovis Byrne MD [Physician] - 1 Month
--- NOTE | 2017-02-19 15:41 | Inventional Radiology Consult ---
Assessment and Plan - Time spent with patient Time spent with patient: Less than 30 minutes (1) Abdominal pain Problem details: distended abdomen with mild RUQ tenderness Status: Acute Assessment and plan: Since admission, the patient's abdominal pain has improved somewhat. He has no nausea vomiting or diarrhea reported. Patient is tolerating an oral diet, ambulating well with no fever and no white count. Pt would likely not tolerate a percutaneous drain very well. If he continues to do so well, he could likely go straight to outpatient surgical cholecystectomy - if needed. I have discussed this with Dr. Byrne and he agrees. Current Visit: Yes IR Consult - Data of Consult Patient: new to practice Consult date: 02/19/17 Requesting Physician: Clovis Byrne - Consult Narrative Reason for consult: possible acute cholecystitis History of present illness: Osmani is a 56 year old M admitted with abdominal pain and found to have markedly elevated serum alcohol level with signs of alcoholic acute alcoholic hepatitis. Hepatitis serologies of the negative. Gallbladder ultrasound shows some wall thickening but no stones. HIDA scan performed today did not show visualization of the gallbladder, which is indeterminate and may be due to gallbladder contraction, cystic duct obstruction (unlikely) or acute cholecystitis (unlikely). Since admission, the patient's abdominal pain has improved somewhat. He has no nausea vomiting or diarrhea reported. He does have slight tenderness over the right upper quadrant, this may be due to hepatic tenderness rather than gallbladder inflammation. Otherwise, patient is tolerating an oral diet, ambulating well with no fever and no white count. 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 I have discussed this with Dr. Byrne and he agrees. - Home Medications and Allergies Home Medications: Home Medications Medication Instructions Recorded Confirmed Type Albuterol Sulfate [Proair HFA] 2 puff INH Q6H PRN #1 inhaler 02/18/17 Rx Folic Acid Tab 1 mg PO DAILY #30 tablet 02/18/17 Rx Furosemide Tab [Lasix Tab] 20 mg PO DAILY #30 tablet 02/18/17 Rx Propranolol Tab [Inderal Tab] 10 mg PO BID #60 tablet 02/18/17 Rx Spironolactone 25 mg PO BID #60 tablet 02/18/17 Rx Thiamine Tab [Vitamin B1 Tab] 100 mg PO DAILY #30 tablet 02/18/17 Rx Allergies/Adverse Reactions: Allergies Allergy/AdvReac Type Severity Reaction Status Date / Time No Known Allergies Allergy Unverified 02/14/17 11:13 12 point system: reviewed and no additional remarkable complaints except as stated Medical,Surgical,& Family Hx - Medical History Cardio: History of: Hypertension Gastrointestinal: History of: Liver Problems (had fluid drawn off "my belly" last time about 5 years ago) - Family History Family History: Reports;: Family Cancer (Father- lung), Family Heart Disease ( Mother), Family Hypertension (Mother), Family Stroke (Mother) - Social History Smoking Status: Never smoker Frequency of Alcohol Use: Frequently Type of Drug Use: None Exam - Labs CBC & BMP: 02/18/17 04:18 02/18/17 04:18 Lab Results: I have reviewed the past 24 hour labs Labs: INR 1.5 02/18/17 04:18 - Constitutional Vitals: Period Temp Pulse Resp BP Sys/Atwood Pulse Ox Last 24 Hr 97.6 F-98.9 F 52-74 16-22 95-121/53-70 95-100 General appearance: over weight - Eye Eye exam: Present: EOMI, conjunctival injection - Respiratory Respiratory exam: Present: clear to auscultation bilaterally - Cardiovascular Cardiovascular exam: Present: regular rate and rhythm - GI/Abdominal GI/Abdominal exam: Present: normal bowel sounds, distended, tenderness (mild RUQ ) - Neurological Exam Neurological exam: Present: alert, oriented X3 - Psychiatric Psychiatric exam: Present: normal affect, normal mood - Skin Skin exam: Present: normal color, dry
[2017-02-19] MEDS: ONDANSETRON 4 MG/2 ML VIAL IV PRN (17:14)
[2017-02-20] MEDS: ALBUTEROL/IPRATROPIUM 3 ML NEB RESP TX SCH ×3 (03:00→11:01)
[2017-02-20 05:47] LABS: INR 1.4; PT Patient Result 15.6 SECS
--- NOTE | 2017-02-20 08:33 | General Surgery Progress Note ---
Assessment and Plan (1) Gallstone Status: Acute Assessment and plan: I have recommended a percutaneous cholecystostomy tube to the patient. He is not willing to go ahead with this. I think he is too high risk for surgery given his alcoholic liver disease and I recommended percutaneous drainage. The patient understands his risk of progression of his disease and even without drainage of his gallbladder but he feels pretty well today with just antibiotics and would like to try an outpatient antibiotic regimen. I will schedule a follow-up appointment to see him in clinic in one month and he should be discharged home on Actigall and oral antibiotics until then. Current Visit: Yes Subjective Patient reports: Present: no new complaints, feels better, still having pain, pain is less, tolerating a regular diet, afebrile. Absent: nausea, vomiting Narrative: The patient was seen by interventional radiology in preparation for a cholecystostomy tube yesterday. The patient refused the procedure after hearing about it and would like to go home with antibiotic therapy. Exam - Constitutional Vitals: Period Temp Pulse Resp BP Sys/Atwood Pulse Ox Last 24 Hr 97.4 F-98.3 F 50-86 16-22 109-145/61-94 93-100 General appearance: no acute distress, over weight - Head Head exam: Present: normal inspection, normocephalic - Eye Eye exam: Present: EOMI. Absent: scleral icterus Pupils: Present: QUINCY - ENT ENT exam: Present: normal exam Mouth exam: Present: normal external inspection, normal voice - Neck Neck exam: Present: normal inspection, trachea midline - Respiratory Respiratory exam: Present: clear to auscultation bilaterally. Absent: accessory muscle use, chest wall tenderness - Cardiovascular Cardiovascular exam: Present: RRR. Absent: systolic murmur, tachycardia - GI/Abdominal GI/Abdominal exam: Present: tenderness (There is mild right upper quadrant tenderness and also bilateral lower quadrant tenderness on exam. There is no Hairston sign.), soft. Absent: Hairston's sign, rebound - Extremities Exam Extremities exam: Present: normal inspection, normal capillary refill - Back Exam Back exam: Present: normal inspection - Neurological Exam Neurological exam: Present: alert, oriented X3 Speech: Present: normal - Skin Skin exam: Present: normal color, warm Results - Labs CBC & BMP: 02/18/17 04:18 02/18/17 04:18 Quality Measures - VTE Contraindication to Pharmacological VTE Prophylaxis: Thrombocytopenia Specialty Discharge - Follow Up or Referrals Follow up with: [facility] [Provider Group] - 2 Weeks Clovis Byrne MD [Physician] - 1 Month
--- NOTE | 2017-02-20 09:28 | Discharge Summary ---
Hospital Course - Hospital Course Hospital Course: 56-year-old -[place] male with a history of known alcoholism presents with complaints of right upper quadrant abdominal pain. Patient's was noted on abdominal ultrasound shows to have a nodular liver and numerous gallstones in his gallbladder with gallbladder wall thickening. His pancytopenia and elevated ammonia level over 159 suggest alcoholic cirrhosis. He was on diuretics including spironolactone and Lasix which was causing dehydration and I have discontinued it. Despite his increasing abdominal girth ultrasound does not show any ascites to tap. Patient reports that he wants to stop drinking but will need help. We have set him up for an outpatient [facility] appointment. I do not feel comfortable that he is ready to stop drinking and will not be giving him benzodiazepines. Dr. Byrne from surgery was consulted but feel that he is too high risk for surgery for the removal of his gallbladder due to bleeding risk from cirrhosis. He recommended interventional radiology to place a drain but after speaking with interventional radiology the patient refused. Dr. Byrne is warned that he is high risk for sepsis and if the gallbladder ruptures or progresses to gangrene. We have treated him for Invanz during the hospitalization but he has no financial resources will give him 10 more days of Cipro which we will pay for at [facility]. We are hopefully can get him on Medicaid soon. His ammonia level has improved down to 56 and he is more mentally clear with the lactulose. I have explained that his life depends on him continuing to take the lactulose to keep the ammonia under control. Patient's blood pressure is well controlled on propranolol 10 mg p.o. twice daily which will also help for portal hypertension. Patient is stable today and will be discharged home with follow-up with Dr. Byrne in [facility]. - Time spent with patient Time with patient DS: Greater than 30 minutes (45 min) Diagnosis - Discharge Diagnosis (1) Abdominal pain Status: Acute (2) Alcoholism Status: Acute (3) Anemia Status: Acute (4) Gallstone Status: Acute (5) Cirrhosis of liver with ascites Status: Chronic (6) Altered mental status Status: Acute Specialty Discharge - Follow Up or Referrals Follow up with: [facility] [Provider Group] - 2 Weeks Clovis Byrne MD [Physician] - 1 Month Discharge Plan - Discharge Data Disposition: Disch To Home/Self Care Condition at Discharge: Stable Discharge Diet: heart healthy Activity: resume usual activities as tolerated Hygiene: no restrictions Weight Bearing at Discharge: full weight bearing - Discharge Medications New Ciprofloxacin Tab [Cipro Tab] 500 mg PO BID #20 tablet Lactulose Liquid [Chronulac] 20 gm PO TID #90 ml Folic Acid Tab 1 mg PO DAILY #30 tablet Propranolol Tab [Inderal Tab] 10 mg PO BID #60 tablet HYDROcodone/ACETAMIN 7.5-325 [Jensen 7.5-325] 1 tablet PO Q6H #25 tablet Albuterol Sulfate [Proair HFA] 2 puff INH Q6H PRN #1 inhaler PRN Reason: Shortness Of Breath/Wheezing Thiamine Tab [Vitamin B1 Tab] 100 mg PO DAILY #30 tablet - Follow Up or Referral Follow Up: [facility] [Provider Group] - 2 Weeks Clovis Byrne MD [Physician] - 1 Month - Forms/Instructions Exam - Constitutional Vitals: Period Temp Pulse Resp BP Sys/[place] Pulse Ox Last 24 Hr 97.4 F-98.3 F 50-86 16-22 109-145/61-94 93-100 General appearance: normal weight, no acute distress - Respiratory Respiratory exam: Present: clear to auscultation bilaterally. Absent: rhonchi, wheezes - Cardiovascular Cardiovascular exam: Present: regular rate and rhythm. Absent: systolic murmur - GI/Abdominal GI/Abdominal exam: Present: normal bowel sounds, tenderness, soft Discharge Results Procedures and tests throughout hospitalization: Pending Orders 02/14/17 18:48 Occult Blood, Stool Routine 02/18/17 11:44 Albumin,Peritoneal Fluid Stat Body Fluid Cult and Gram Stain Stat Cell Count w Diff, Peritone Fl Stat Cytology Request Stat 02/19/17 13:04 IR cholecystostomy complete Routine 02/20/17 04:00 IR cholangiogram percutaneous IN AM 02/21/17 04:00 Ammonia IN AM Labs on day of discharge: Labs from last 24 hours 02/20/17 02/20/17 05:20 05:20 INR 1.4 PT Patient/Control Mix 15.6 Ammonia 56 H DS: Provider Date of admission: 02/14/17 13:56 Primary care physician: . No PCP Attending physician on admission: Hieu Luna MD Consults: 02/14/17 17:24 Consult to Physician [CONS] Routine Comment: abd pain/right upper quad/cholelithiasis/?cholcyst Consulting Provider: Clovis Byrne When should Consulting Provider be notified: Now Person Notified: Dr. Byrne Date Notified: 02/14/17 Time Notified: 19:10 02/14/17 17:27 Consult to Case Mgmt/Social Srvs [CONS] Routine Reason for Case Mgmt/Social Srvs: Discharge Planning Discharging clinician: Katharina Marshall MD
[2017-02-20] MEDS: PROPRANOLOL 10 MG TABLET PO SCH (09:58)
[2017-02-20] MEDS: MULTIVITAMIN (BEROCCA) TABLET PO SCH (09:59)
[2017-02-20] MEDS: LACTULOSE 20 GM/30 ML UDCUP PO SCH (09:59)
[2017-02-20] MEDS: PANTOPRAZOLE 40 MG TABLET PO SCH (10:03)
[2017-02-20] MEDS: THIAMINE 200 MG/2 ML VIAL IV SCH (10:04)
[2017-02-20 12:28] VITALS: BP 113/68
--- NOTE | 2017-02-25 08:21 | Physician Query Form ---
CLICK EDIT DOCUMENT TO SELECT QUERY ANSWER --> OK --> SIGN Vandana Hernandez RN Clinical Gambling Monitor W) [phone] (f) [phone] [email or web address]: Make your selection(s) from the choices in EACH section by typing an "x" and enter comments in the comment section. Please use your independent medical judgment in providing your response. This request does not imply that any particular answer is desired or expected. CLINICAL INDICATORS: (Providers should not edit this section) Pt. admitted with alcoholic liver disease with cirrhosis/ascites. Based on documentation of "hepatic encephalopathy", ammonia level of 159 with altered mental status. Pt. treated with Lactulose. Please clarify the acuity of the hepatic encephalopathy. Clarify which of the following accurately represents the acuity of the above diagnosis. ( ) Acute (X) Acute on chronic ( ) Chronic stable condition ( ) Remission ( ) Other, please specify: ( ) Clinically unable to determine COMMENTS: PLEASE ALSO DOCUMENT RESPONSE IN PROGRESS NOTES AND/OR DISCHARGE SUMMARY Use of terms such as suspected, likely, or probable (associated with a specific diagnosis that is being evaluated, monitored, or treated as if it exists) are acceptable and can be restated in the discharge summary if not ruled out. MTDD
== END 2017-02-20 12:05 | disposition home or self-care (01) | DRG 445 ==
LOC: N.ED 11:06 → SUATTDRO 13:56 → N.EDINP 13:56 → N.4E 16:30
PROVIDERS: ADMIT Internal Medicine Cardiovascular Disease; ATTEND Internal Medicine

== ENCOUNTER 2018-03-04 12:36 | Inpatient (IN) ==
[2018-03-04] MEDS ORDERED: ONDANSETRON 4 MG/2 ML VIAL IV STA (13:05)
[2018-03-04] MEDS ORDERED: PANTOPRAZOLE 40 MG VIAL IV STA (13:05)
[2018-03-04] MEDS ORDERED: PIPERACILLIN/TAZOBACTAM 3,375 MG in SODIUM CHLORIDE 0.9% 100 ML IV STA (13:05)
[2018-03-04] MEDS ORDERED: ACETAMINOPHEN 500 MG TABLET PO STA (13:10)
[2018-03-04] MEDS ORDERED: ALBUTEROL/IPRATROPIUM 3 ML NEB RESP TX STA (13:10)
[2018-03-04] MEDS ORDERED: FUROSEMIDE 40 MG/4 ML VIAL IV STA (13:10)
[2018-03-04 14:13] LABS: Basophils % 0.6 % (0.0-0.8); Eosinophils % 0.8 % (0.00-10.9); Hematocrit 20.1 VOL% (42.0-52.0); Hemoglobin 7.1 GM/DL (14.0-18.0); Immature Granulocytes % 0.8 %; Immature Granulocytes Absolute 0.04 #; Lymphocytes # 0.9 10*3/uL (1.4-4.0); Lymphocytes % 18.9 % (21.2-54.2); Mean Corpuscular HGB Conc 35.3 GM/DL (32-36); Mean Corpuscular Hemoglobin 26 PG (27-34); Mean Corpuscular Volume 73.1 FL (87-102); Monocytes # 0.7 10*3/uL (0.11-0.8); Monocytes % 15.1 % (1.7-12.7); Neutrophils % 63.8 % (38.7-73.9); Platelet Count 60 T/CUMM (130-400); Red Blood Count 2.75 MC/CUMM (3.8-5.5); Red Cell Distribution Width 28.1 % (9.3-17.3); White Blood Count 4.8 T/CUMM (4-12)
[2018-03-04 14:24] LABS: Ammonia 87 UMOL/L (11-32)
[2018-03-04 14:29] LABS: Lactic Acid 4.1 MMOL/L (0.4-2.0)
[2018-03-04 14:31] LABS: Alanine Aminotransferase 31 U/L (16-61); Albumin 1.9 G/DL (3.4-5.0); Alkaline Phosphatase 161 U/L (45-117); Amylase 110 U/L (25-115); Aspartate Amino Transferase 178 U/L (0-37); Blood Urea Nitrogen 10 MG/DL (7-18); Calcium 7.7 MG/DL (8.5-10.1); Glucose 87 MG/DL (74-106); Osmolality,Calculated 267.1 MOS/KG (273-304); Potassium 3.3 MMOL/L (3.5-5.1); Sodium 135 MMOL/L (136-145); Troponin I < 0.015 NG/ML (0.00-0.045)
[2018-03-04 14:36] LABS: Polychromasia Slight
[2018-03-04 14:37] LABS: Spherocytes Slight
[2018-03-04 14:40] LABS: Target Cells 2+
[2018-03-04 14:42] LABS: Anisocytosis Slight; Hypochromasia 1+
[2018-03-04 14:51] LABS: Apearance,Urine CLEAR (Clear); Blood, Urine Small mg/dL (Negative); Glucose,Urine (UA) Negative (Negative); Hyaline Casts,Urine 16 /LPF (0-3); Ketones,Urine 5 mg/dL (Negative); Mucus,Urine Occasional /LPF (Occasional); Nitrite,Urine Negative (Negative); Protein,Urine 30 MG/DL; RBC,Urine 1 /HPF (0-4); Squamous Epithelial Cell,Urine Occasional /HPF (0-10); Urine Color Amber (Yellow); Urine Specific Gravity 1.012 (1.001-1.035); WBC,Urine 1 /HPF (0-6)
[2018-03-04 14:52] LABS: Bilirubin,Urine Small mg/dL (Negative)
[2018-03-04 14:58] LABS: ABG Base Excess -4.7 MMOL/L (-2.5-2.5); ABG HCO3 18.2 MMOL/L (20-26); ABG Oxygen Saturation 92.2 % (95-100); ABG PCO2 25.4 MM HG (35-48); ABG PH 7.472 (7.35-7.45); ABG PO2 76.3 MM HG (80-95); ABG TCO2 18.9 MMOL/L (23-27)
[2018-03-04 15:01] LABS: Barbiturates Screen,Urine Negative (Negative); Benzodiazepines Screen,Urine Negative (Negative); Cannabinoid Screen,Urine Negative (Negative); Opiate Screen,Urine Negative (Negative); Phencyclidine Screen,Urine Negative (Negative)
[2018-03-04] MEDS ORDERED: ALBUTEROL 2.5 MG/3 ML NEB RESP TX PRN (15:39)
[2018-03-04] MEDS ORDERED: ONDANSETRON 4 MG/2 ML VIAL IV PRN (15:39)
[2018-03-04] MEDS ORDERED: SODIUM CHLORIDE 0.9% 2,450 ML IV ONE (15:39)
[2018-03-04] MEDS ORDERED: SODIUM CHLORIDE 0.9% 1,000 ML IV PRN (15:44)
[2018-03-04] MEDS ORDERED: LACTATED RINGERS 1,000 ML IV SCH (16:00)
[2018-03-04 16:36] LABS: Risk Ratio 4.13
[2018-03-04 16:44] LABS: INR 1.9; PT Patient Result 19.2 SECS
[2018-03-04] MEDS: PANTOPRAZOLE 40 MG VIAL IV SCH (17:39)
[2018-03-04] MEDS: LACTULOSE 20 GM/30 ML UDCUP PO SCH ×2 (18:03→21:17)
[2018-03-04] MEDS ORDERED: FUROSEMIDE 40 MG/4 ML VIAL IV ONE (18:13)
[2018-03-04 18:37] LABS: Lactic Acid 3.6 MMOL/L (0.4-2.0)
[2018-03-04] MEDS: SODIUM CHLORIDE 0.9% 1,000 ML IV SCH (21:25)
[2018-03-04] MEDS: PIPERACILLIN/TAZOBACTAM 3,375 MG in SODIUM CHLORIDE 0.9% 100 ML IV SCH (22:43)
[2018-03-05 01:37] LABS: Hematocrit 27.6 VOL% (42.0-52.0)
[2018-03-05 01:53] LABS: Hemoglobin 9.7 GM/DL (14.0-18.0)
[2018-03-05] MEDS: PANTOPRAZOLE 40 MG VIAL IV SCH ×2 (03:51→17:41)
[2018-03-05] MEDS: LACTULOSE 20 GM/30 ML UDCUP PO SCH ×4 (03:51→21:46)
[2018-03-05 04:28] LABS: Basophils % 0.6 % (0.0-0.8); Eosinophils % 0.4 % (0.00-10.9); Hematocrit 26.5 VOL% (42.0-52.0); Hemoglobin 9.2 GM/DL (14.0-18.0); Immature Granulocytes % 1.3 %; Immature Granulocytes Absolute 0.06 #; Lymphocytes # 0.9 10*3/uL (1.4-4.0); Lymphocytes % 18.9 % (21.2-54.2); Mean Corpuscular HGB Conc 34.7 GM/DL (32-36); Mean Corpuscular Hemoglobin 26 PG (27-34); Mean Corpuscular Volume 75.1 FL (87-102); Monocytes # 0.8 10*3/uL (0.11-0.8); Monocytes % 15.8 % (1.7-12.7); Platelet Count 53 T/CUMM (130-400); Red Blood Count 3.53 MC/CUMM (3.8-5.5); Red Cell Distribution Width 27.4 % (9.3-17.3); White Blood Count 4.8 T/CUMM (4-12)
[2018-03-05 04:34] LABS: PT Patient Result 20.9 SECS
[2018-03-05 05:00] LABS: Albumin 1.9 G/DL (3.4-5.0); Bilirubin,Total 4.4 MG/DL (0.2-1.0); Calcium 7.8 MG/DL (8.5-10.1); Osmolality,Calculated 278.3 MOS/KG (273-304); Potassium 3.2 MMOL/L (3.5-5.1)
[2018-03-05 05:25] LABS: Band Neutrophils 5 % (0-10); Lymphocytes 11 % (20-55); Segmented Neutrophils 70 % (50-85); Total Cells Counted 100
[2018-03-05 05:26] LABS: Microcytosis 1+; Target Cells 2+
[2018-03-05 05:27] LABS: Anisocytosis 1+; Burr Cells Slight; Hypochromasia 1+; Platelet Estimate Decreased
[2018-03-05] MEDS: POTASSIUM CHLORIDE RIDER 10 MEQ in PREMIX 1 EACH IV PRN ×4 (06:06→11:20)
[2018-03-05] MEDS: PIPERACILLIN/TAZOBACTAM 3,375 MG in SODIUM CHLORIDE 0.9% 100 ML IV SCH ×2 (06:06→15:11)
[2018-03-05 08:17] LABS: Hematocrit 25.1 VOL% (42.0-52.0); Hemoglobin 8.9 GM/DL (14.0-18.0)
[2018-03-05] MEDS: SODIUM CHLORIDE 0.9% 1,000 ML IV SCH ×2 (08:23)
[2018-03-05 09:19] LABS: Lactic Acid 3.2 MMOL/L (0.4-2.0)
[2018-03-05] MEDS: PHYTONADIONE 5 MG/5 ML ORAL.SYR PO SCH (09:40)
[2018-03-05] MEDS: FOLIC ACID 1 MG TABLET PO SCH ×2 (09:41→21:02)
[2018-03-05] MEDS: THIAMINE 100 MG TABLET PO SCH ×2 (09:41→21:02)
[2018-03-05] MEDS ORDERED: MAGNESIUM SULF RIDER 4 GM in PREMIX 1 EACH IV ONE (10:00)
[2018-03-05] MEDS: FUROSEMIDE 40 MG/4 ML VIAL IV SCH (11:56)
[2018-03-05] MEDS: SPIRONOLACTONE 25 MG TABLET PO SCH ×2 (11:56→21:02)
[2018-03-05] MEDS ORDERED: POTASSIUM CHLORIDE RIDER 100 ML IV ONE (13:02)
[2018-03-05 18:11] LABS: Hematocrit 26.4 VOL% (42.0-52.0); Hemoglobin 9.5 GM/DL (14.0-18.0)
[2018-03-05] MEDS ORDERED: CYCLOBENZAPRINE 10 MG TABLET PO PRN (21:14)
[2018-03-06] MEDS: PIPERACILLIN/TAZOBACTAM 3,375 MG in SODIUM CHLORIDE 0.9% 100 ML IV SCH ×4 (00:03→23:09)
[2018-03-06 01:11] LABS: Basophils % 0.7 % (0.0-0.8); Eosinophils # 0.1 10*3/uL (0.0-0.87); Eosinophils % 0.9 % (0.00-10.9); Hematocrit 26.6 VOL% (42.0-52.0); Hemoglobin 9.3 GM/DL (14.0-18.0); Immature Granulocytes % 0.4 %; Immature Granulocytes Absolute 0.02 #; Lymphocytes # 1.4 10*3/uL (1.4-4.0); Lymphocytes % 25.7 % (21.2-54.2); Mean Corpuscular Hemoglobin 26 PG (27-34); Mean Corpuscular Volume 74.7 FL (87-102); Monocytes # 0.9 10*3/uL (0.11-0.8); Monocytes % 16.6 % (1.7-12.7); NRBC # 0.02 10*3/uL; Neutrophils # 3.1 10*3/uL (1.4-7.4); Neutrophils % 55.7 % (38.7-73.9); Red Blood Count 3.56 MC/CUMM (3.8-5.5); Red Cell Distribution Width 27.2 % (9.3-17.3); White Blood Count 5.5 T/CUMM (4-12)
[2018-03-06 01:12] LABS: Platelet Count 65 T/CUMM (130-400)
[2018-03-06 01:27] LABS: PT Patient Result 20.4 SECS
[2018-03-06 01:46] LABS: Albumin 1.9 G/DL (3.4-5.0); Bilirubin,Total 4.2 MG/DL (0.2-1.0); Calcium 7.9 MG/DL (8.5-10.1); Osmolality,Calculated 263.4 MOS/KG (273-304); Potassium 2.9 MMOL/L (3.5-5.1); Total Protein 9.1 G/DL (6.4-8.3)
[2018-03-06 02:02] LABS: Band Neutrophils 5 % (0-10); Eosinophils 1 % (0-10); Lymphocytes 37 % (20-55); Segmented Neutrophils 49 % (50-85); Target Cells 2+
[2018-03-06 02:03] LABS: Hypochromasia 2+; Platelet Estimate Decreased; Polychromasia Few
[2018-03-06 02:04] LABS: Total Cells Counted 100
[2018-03-06] MEDS: LACTULOSE 20 GM/30 ML UDCUP PO SCH ×4 (04:10→22:00)
[2018-03-06] MEDS: PANTOPRAZOLE 40 MG VIAL IV SCH ×2 (04:10→17:22)
[2018-03-06 07:58] LABS: Total Protein (Chem) 8.5 G/DL (6.4-8.3)
[2018-03-06 07:59] LABS: Albumin (SPE) 2.2 G/DL (3.2-5.3); Albumin (SPE) Rel % 25.9 %; Alpha 1 (SPE) 0.2 G/DL (0.1-0.4); Alpha 1 (SPE) Rel % 2.8 %; Alpha 2 (SPE) 0.4 G/DL (0.4-1.0); Alpha 2 (SPE) Rel % 5.3 %; Beta (SPE) 1.1 G/DL (0.5-1.1); Beta (SPE) Rel % 12.7 %; Gamma (SPE) 4.5 G/DL (0.7-1.7); Gamma (SPE) Rel % 53.3 %
[2018-03-06] MEDS ORDERED: MAGNESIUM SULF RIDER 4 GM in PREMIX 1 EACH IV ONE (08:10)
[2018-03-06] MEDS ORDERED: POTASSIUM CHLORIDE 20 MEQ TABLET PO ONE ×2 (08:13→16:53)
[2018-03-06] MEDS ORDERED: PNEUMOCOCCAL VACCINE (23 VALENT) 0.5 ML VIAL IM ONE (09:00)
[2018-03-06 09:10] LABS: Hematocrit 26.6 VOL% (42.0-52.0); Hemoglobin 9.4 GM/DL (14.0-18.0)
[2018-03-06] MEDS: POTASSIUM CHLORIDE RIDER 10 MEQ in PREMIX 1 EACH IV SCH ×4 (09:17→13:00)
[2018-03-06] MEDS: FOLIC ACID 1 MG TABLET PO SCH ×2 (10:22→20:46)
[2018-03-06] MEDS: SPIRONOLACTONE 25 MG TABLET PO SCH ×2 (10:22→20:46)
[2018-03-06] MEDS: THIAMINE 100 MG TABLET PO SCH ×2 (10:22→20:46)
[2018-03-06] MEDS: PHYTONADIONE 5 MG/5 ML ORAL.SYR PO SCH (10:23)
[2018-03-06] MEDS: FUROSEMIDE 40 MG/4 ML VIAL IV SCH (10:49)
[2018-03-06] MEDS: FUROSEMIDE 40 MG TABLET PO SCH (10:55)
[2018-03-06 12:04] LABS: Calcium 7.8 MG/DL (8.5-10.1); Osmolality,Calculated 265.2 MOS/KG (273-304); Potassium 3.5 MMOL/L (3.5-5.1)
[2018-03-06] MEDS ORDERED: PHYTONADIONE 10 MG/1 ML AMP SUBCUT ONE (13:29)
[2018-03-07] MEDS: LACTULOSE 20 GM/30 ML UDCUP PO SCH ×3 (05:47→21:06)
[2018-03-07] MEDS: PIPERACILLIN/TAZOBACTAM 3,375 MG in SODIUM CHLORIDE 0.9% 100 ML IV SCH (06:25)
[2018-03-07 06:34] LABS: Basophils % 0.7 % (0.0-0.8); Eosinophils # 0.1 10*3/uL (0.0-0.87); Hematocrit 28.2 VOL% (42.0-52.0); Hemoglobin 9.8 GM/DL (14.0-18.0); Immature Granulocytes % 0.6 %; Immature Granulocytes Absolute 0.03 #; Lymphocytes # 1.3 10*3/uL (1.4-4.0); Lymphocytes % 24.6 % (21.2-54.2); Mean Corpuscular HGB Conc 34.8 GM/DL (32-36); Mean Corpuscular Hemoglobin 27 PG (27-34); Mean Corpuscular Volume 76.2 FL (87-102); Monocytes # 0.9 10*3/uL (0.11-0.8); Monocytes % 15.8 % (1.7-12.7); Neutrophils % 56.3 % (38.7-73.9); Platelet Count 84 T/CUMM (130-400); Red Cell Distribution Width 28.1 % (9.3-17.3); White Blood Count 5.4 T/CUMM (4-12)
[2018-03-07 06:44] LABS: PT Patient Result 20.6 SECS
[2018-03-07 07:01] LABS: Band Neutrophils 4 % (0-10); Eosinophils 3 % (0-10); Hypochromasia 1+; Lymphocytes 18 % (20-55); Platelet Estimate Decreased; Segmented Neutrophils 63 % (50-85); Target Cells Few; Total Cells Counted 100
[2018-03-07 07:02] LABS: Macrocytosis Slight
[2018-03-07 07:04] LABS: Calcium 8.1 MG/DL (8.5-10.1); Osmolality,Calculated 265.2 MOS/KG (273-304)
[2018-03-07] MEDS: FUROSEMIDE 40 MG TABLET PO SCH (09:44)
[2018-03-07] MEDS: SPIRONOLACTONE 25 MG TABLET PO SCH ×2 (09:44→21:06)
[2018-03-07] MEDS: FOLIC ACID 1 MG TABLET PO SCH ×2 (09:44→21:06)
[2018-03-07] MEDS: PANTOPRAZOLE 40 MG VIAL IV SCH ×2 (09:44→20:26)
[2018-03-07] MEDS: THIAMINE 100 MG TABLET PO SCH ×2 (09:44→21:06)
[2018-03-07] MEDS ORDERED: LIDOCAINE 100 MG/5 ML SYRINGE ONE (11:42)
[2018-03-07] MEDS ORDERED: PROPOFOL 200 MG/20 ML VIAL IV ONE (11:42)
[2018-03-07] MEDS: CEFUROXIME 500 MG TABLET PO SCH (21:06)
[2018-03-08 06:24] LABS: Basophils % 0.7 % (0.0-0.8); Eosinophils # 0.1 10*3/uL (0.0-0.87); Eosinophils % 2.4 % (0.00-10.9); Hematocrit 25.5 VOL% (42.0-52.0); Hemoglobin 9.1 GM/DL (14.0-18.0); Immature Granulocytes % 0.2 %; Immature Granulocytes Absolute 0.01 #; Lymphocytes # 1.4 10*3/uL (1.4-4.0); Lymphocytes % 33.2 % (21.2-54.2); Mean Corpuscular HGB Conc 35.7 GM/DL (32-36); Mean Corpuscular Hemoglobin 27 PG (27-34); Mean Corpuscular Volume 75.2 FL (87-102); Monocytes # 0.6 10*3/uL (0.11-0.8); Monocytes % 14.5 % (1.7-12.7); Platelet Count 78 T/CUMM (130-400); Red Blood Count 3.39 MC/CUMM (3.8-5.5); Red Cell Distribution Width 28.7 % (9.3-17.3); White Blood Count 4.1 T/CUMM (4-12)
[2018-03-08 06:46] LABS: Band Neutrophils 1 % (0-10); Eosinophils 4 % (0-10); Lymphocytes 33 % (20-55); Myelocytes 1 %; Segmented Neutrophils 56 % (50-85); Total Cells Counted 100
[2018-03-08 06:47] LABS: Anisocytosis 1+; Hypochromasia 1+; Target Cells 3+
[2018-03-08 06:48] LABS: Platelet Estimate Decreased
[2018-03-08] MEDS: LACTULOSE 20 GM/30 ML UDCUP PO SCH (08:53)
[2018-03-08] MEDS: CEFUROXIME 500 MG TABLET PO SCH (08:53)
[2018-03-08] MEDS: SPIRONOLACTONE 25 MG TABLET PO SCH (08:53)
[2018-03-08] MEDS: FOLIC ACID 1 MG TABLET PO SCH (08:53)
[2018-03-08] MEDS: FUROSEMIDE 40 MG TABLET PO SCH (08:53)
[2018-03-08] MEDS: THIAMINE 100 MG TABLET PO SCH (08:53)
[2018-03-08] MEDS: PANTOPRAZOLE 40 MG VIAL IV SCH (08:57)
[2018-03-08 12:20] VITALS: BP 131/89
== END 2018-03-08 15:13 | disposition home or self-care (01) | DRG 377 ==
LOC: N.ED 12:36 → SUATTDRO 15:39 → N.EDINP 15:39 → N.ICU 16:27 → N.2E 03-06 16:37
PROVIDERS: ADMIT Internal Medicine; ATTEND Internal Medicine